=== PATIENT | male | born 1980 | race Asian ===

== ENCOUNTER 2020-03-16 04:39 | Inpatient (IN) | payer OTHER ==
[~2020-03-16] VITALS: Ht 162.6 cm; Wt 67.4 kg
[2020-03-16 06:01] LABS: BASOPHILS % (AUTO) 1 % (0-1); EOSINOPHILS % (AUTO) 1 % (1-7); LYMPHOCYTES % (AUTO) 29 % (22-44); MEAN CORPUSCULAR HEMOGLOBIN 31.1 pg (27.5-34.5); MEAN CORPUSCULAR HGB CONC 33.3 g/dL (33.2-36.2); MEAN PLATELET VOLUME 7.8 fL (7.4-10.4); MONOCYTES % (AUTO) 9 % (2-9); NEUTROPHILS % (AUTO) 60 % (42-75); PLATELET COUNT 364 x10^3/uL (130-400); RED BLOOD COUNT 5.05 x10^6/uL (4.38-5.82); RED CELL DISTRIBUTION WIDTH 13.9 % (9.4-14.8)
[2020-03-16 06:02] LABS: MD NO
[2020-03-16 06:11] LABS: ALANINE AMINOTRANSFERASE 46 U/L (12-78); ALBUMIN 3.5 g/dL (3.4-5.0); ANION GAP 6 mmol/L (5-15); CALCIUM 8.7 mg/dL (8.5-10.1); CHLORIDE 110 mmol/L (98-107); CREATININE 1.24 mg/dL (0.7-1.3)
[2020-03-16 06:16] LABS: ALKALINE PHOSPHATASE 82 U/L (45-117); BILIRUBIN,TOTAL 0.8 mg/dL (0.2-1.0); TOTAL PROTEIN 7.5 g/dL (6.4-8.2); TROPONIN I 0.046 ng/mL (0.000-0.045)
[2020-03-16] MEDS ORDERED: LORazepam 2 MG/ML, 1ML IV ONE (07:00)
[2020-03-16] MEDS ORDERED: ASPIRIN 81 MG TABLET CHEW PO ONE (07:00)
--- NOTE | 2020-03-16 07:18 | NUR ---
PT C/P SOB FOR SEVERAL DAYS. PT STATES HE WAS AT [facility] FOR THE SAME THING AND WAS DISCHARGED. PT STATES THE SOB GETS WORSE WHEN LAYONG FLAT AND AT NIGHT. PT DENIES CP OR GI DISTRESS.
[2020-03-16] MEDS ORDERED: LABETALOL 5MG/ML, 20ML IVPush ONE (07:30)
[2020-03-16] MEDS ORDERED: ENALAPRILAT 1.25 MG/ML, 2ML IV ONE (07:30)
[2020-03-16] MEDS ORDERED: LORazepam 2 MG/ML, 1ML ONE (07:35)
[2020-03-16] MEDS ORDERED: LABETALOL 5MG/ML, 20ML ONE (07:35)
[2020-03-16] MEDS ORDERED: ASPIRIN 81 MG TABLET CHEW ONE (07:35)
--- NOTE | 2020-03-16 08:09 | NUR ---
PHARMACY TUBED FOR VASOTEC
--- NOTE | 2020-03-16 08:26 | NUR ---
PT PLACED ON O2 TO HELP WITH CONTINUED SOB AND PT ANXIETY.
[2020-03-16] MEDS ORDERED: ACETAMINOPHEN 325 MG TABLET PO PRN (09:00)
[2020-03-16] MEDS: ENOXAPARIN 40 MG/0.4 ML SQ SCH (09:00)
--- NOTE | 2020-03-16 09:07 | NUR ---
VASOTEC NOT ADMINISTERED AFTER SPEAKING WITH CAROL GILLESPIE.
[2020-03-16] MEDS ORDERED: ENOXAPARIN 40 MG/0.4 ML ONE (09:14)
[2020-03-16 09:47] LABS: INTERNATIONAL NORMALIZED RATIO 1.14 (0.93-1.1); PROTHROMBIN TIME 12.2 Seconds (9.6-11.5)
--- NOTE | 2020-03-16 09:55 | NUR ---
ULTRASOUND BEDSIDE FOR ABD ULTRASOUND
--- NOTE | 2020-03-16 10:36 | NUR ---
ABD ULTRASOUND COMPLETED
--- NOTE | 2020-03-16 11:10 | NUR ---
REPORT FROM ROLY ZAMORA.
--- NOTE | 2020-03-16 11:36 | NUR ---
REPORT TO JEET ZAMORA.
[2020-03-16 12:56] VITALS: BP 120/85
[2020-03-16 14:16] LABS: ANION GAP 6 mmol/L (5-15); CALCIUM 8.6 mg/dL (8.5-10.1); CHLORIDE 114 mmol/L (98-107); CREATININE 1.13 mg/dL (0.7-1.3)
[2020-03-16 14:20] LABS: TROPONIN I 0.031 ng/mL (0.000-0.045)
[2020-03-16 15:51] LABS: MICROSCOPIC AUTO
[2020-03-16 16:09] LABS: AMPHETAMINE SCREEN, URINE Positive (Negative); BARBITURATE SCREEN, URINE Negative (Negative); BENZODIAZEPINE SCREEN, URINE Negative (Negative); CANNABINOID SCREEN, URINE Negative (Negative); COCAINE SCREEN, URINE Negative (Negative); METHADONE SCREEN, URINE Negative (Negative); OPIATE SCREEN, URINE Negative (Negative)
[2020-03-16 18:23] VITALS: BP 142/96
[2020-03-16] MEDS: CARVEDILOL 3.125 MG TABLET PO SCH (20:27)
[2020-03-16] MEDS ORDERED: FUROSEMIDE 20 MG/2 ML IV ONE (20:30)
[2020-03-16] MEDS ORDERED: TEMAZEPAM 15 MG CAPSULE ONE (23:09)
[2020-03-16] MEDS: TEMAZEPAM 15 MG CAPSULE PO PRN (23:10)
[2020-03-17 01:21] VITALS: BP 142/79
[2020-03-17] MEDS: ASPIRIN 325 MG TABLET EC PO SCH (06:05)
[2020-03-17] MEDS: CARVEDILOL 3.125 MG TABLET PO SCH (06:05)
[2020-03-17 06:11] LABS: BASOPHILS % (AUTO) 1 % (0-1); EOSINOPHILS % (AUTO) 1 % (1-7); LYMPHOCYTES % (AUTO) 29 % (22-44); MEAN CORPUSCULAR HEMOGLOBIN 30.7 pg (27.5-34.5); MEAN PLATELET VOLUME 7.8 fL (7.4-10.4); MONOCYTES % (AUTO) 9 % (2-9); NEUTROPHILS % (AUTO) 60 % (42-75); PLATELET COUNT 355 x10^3/uL (130-400); RED BLOOD COUNT 4.89 x10^6/uL (4.38-5.82); RED CELL DISTRIBUTION WIDTH 13.6 % (9.4-14.8)
[2020-03-17 06:26] LABS: ALBUMIN 3.2 g/dL (3.4-5.0); ANION GAP 5 mmol/L (5-15); CALCIUM 8.4 mg/dL (8.5-10.1); CHLORIDE 109 mmol/L (98-107)
[2020-03-17 06:38] LABS: ALANINE AMINOTRANSFERASE 39 U/L (12-78); ALKALINE PHOSPHATASE 66 U/L (45-117); BILIRUBIN,TOTAL 1.1 mg/dL (0.2-1.0); CREATININE 1.48 mg/dL (0.7-1.3); TOTAL PROTEIN 6.8 g/dL (6.4-8.2)
[2020-03-17 06:39] LABS: MD NO
[2020-03-17 08:09] VITALS: BP 141/100
[2020-03-17] MEDS: ENOXAPARIN 40 MG/0.4 ML SQ SCH (09:00)
[2020-03-17 12:23] VITALS: BP 126/93
[2020-03-17] MEDS: SPIRONOLACTONE 25 MG TABLET PO SCH ×2 (12:49→20:44)
[2020-03-17] MEDS: CARVEDILOL 12.5 MG TABLET PO SCH (17:42)
[2020-03-17 20:29] VITALS: BP 124/87
[2020-03-17] MEDS: TEMAZEPAM 15 MG CAPSULE PO PRN (20:43)
[2020-03-18 00:29] VITALS: BP 130/90
[2020-03-18 05:59] LABS: BASOPHILS % (AUTO) 1 % (0-1); EOSINOPHILS % (AUTO) 1 % (1-7); LYMPHOCYTES % (AUTO) 30 % (22-44); MEAN CORPUSCULAR HEMOGLOBIN 31.2 pg (27.5-34.5); MEAN CORPUSCULAR HGB CONC 33.1 g/dL (33.2-36.2); MEAN PLATELET VOLUME 7.8 fL (7.4-10.4); MONOCYTES % (AUTO) 9 % (2-9); NEUTROPHILS % (AUTO) 59 % (42-75); PLATELET COUNT 353 x10^3/uL (130-400); RED BLOOD COUNT 4.83 x10^6/uL (4.38-5.82); RED CELL DISTRIBUTION WIDTH 13.5 % (9.4-14.8)
[2020-03-18 06:11] LABS: MD NO
[2020-03-18 06:12] LABS: CHLORIDE 108 mmol/L (98-107)
[2020-03-18 06:49] LABS: ANION GAP 8 mmol/L (5-15); CALCIUM 8.8 mg/dL (8.5-10.1); CREATININE 1.29 mg/dL (0.7-1.3)
[2020-03-18] MEDS: CARVEDILOL 12.5 MG TABLET PO SCH ×2 (06:50→17:26)
[2020-03-18] MEDS: ASPIRIN 325 MG TABLET EC PO SCH (06:51)
[2020-03-18 08:04] VITALS: BP 118/81
[2020-03-18] MEDS: ENOXAPARIN 40 MG/0.4 ML SQ SCH (08:31)
[2020-03-18] MEDS: SPIRONOLACTONE 25 MG TABLET PO SCH ×3 (08:31→20:22)
[2020-03-18] MEDS ORDERED: REGADENOSON 0.4 MG/5 ML SYRINGE ONE (08:45)
[2020-03-18 12:57] VITALS: BP 112/78
[2020-03-18 20:00] VITALS: BP 122/87
[2020-03-18] MEDS: TEMAZEPAM 15 MG CAPSULE PO PRN (20:39)
[2020-03-19 01:43] VITALS: BP 111/72
[2020-03-19] MEDS: ASPIRIN 325 MG TABLET EC PO SCH (05:26)
[2020-03-19] MEDS: CARVEDILOL 12.5 MG TABLET PO SCH ×2 (05:26→18:05)
[2020-03-19 06:46] LABS: BASOPHILS % (AUTO) 1 % (0-1); EOSINOPHILS % (AUTO) 1 % (1-7); LYMPHOCYTES % (AUTO) 34 % (22-44); MEAN CORPUSCULAR HGB CONC 33.1 g/dL (33.2-36.2); MEAN PLATELET VOLUME 7.7 fL (7.4-10.4); MONOCYTES % (AUTO) 9 % (2-9); NEUTROPHILS % (AUTO) 56 % (42-75); PLATELET COUNT 357 x10^3/uL (130-400); RED CELL DISTRIBUTION WIDTH 13.8 % (9.4-14.8)
[2020-03-19 06:49] LABS: MD NO
[2020-03-19 06:59] LABS: ANION GAP 7 mmol/L (5-15); CALCIUM 8.3 mg/dL (8.5-10.1); CHLORIDE 108 mmol/L (98-107)
[2020-03-19 08:35] VITALS: BP 136/99
[2020-03-19] MEDS: ENOXAPARIN 40 MG/0.4 ML SQ SCH (09:00)
[2020-03-19] MEDS: SPIRONOLACTONE 25 MG TABLET PO SCH ×2 (09:06→20:30)
[2020-03-19 13:35] VITALS: BP 132/94
[2020-03-19 20:16] VITALS: BP 129/90
[2020-03-19] MEDS: TEMAZEPAM 15 MG CAPSULE PO PRN (20:30)
[2020-03-20 01:43] VITALS: BP 120/79
[2020-03-20 05:46] LABS: BASOPHILS % (AUTO) 0 % (0-1); EOSINOPHILS % (AUTO) 0 % (1-7); LYMPHOCYTES % (AUTO) 24 % (22-44); MD NO; MEAN CORPUSCULAR HEMOGLOBIN 31.1 pg (27.5-34.5); MEAN CORPUSCULAR HGB CONC 33.1 g/dL (33.2-36.2); MEAN PLATELET VOLUME 7.4 fL (7.4-10.4); MONOCYTES % (AUTO) 5 % (2-9); NEUTROPHILS % (AUTO) 71 % (42-75); PLATELET COUNT 365 x10^3/uL (130-400); RED BLOOD COUNT 4.93 x10^6/uL (4.38-5.82); RED CELL DISTRIBUTION WIDTH 13.6 % (9.4-14.8)
[2020-03-20 05:57] LABS: ANION GAP 6 mmol/L (5-15); CALCIUM 8.5 mg/dL (8.5-10.1); CHLORIDE 108 mmol/L (98-107)
[2020-03-20 06:14] VITALS: BP 135/94
[2020-03-20] MEDS: CARVEDILOL 12.5 MG TABLET PO SCH (06:16)
[2020-03-20] MEDS: ASPIRIN 325 MG TABLET EC PO SCH (06:16)
[2020-03-20 07:31] VITALS: BP 135/95
[2020-03-20] MEDS: ENOXAPARIN 40 MG/0.4 ML SQ SCH (09:00)
[2020-03-20] MEDS: SPIRONOLACTONE 25 MG TABLET PO SCH ×2 (09:00→20:17)
[2020-03-20] MEDS ORDERED: MAALOX/HYOSCYAMINE/LIDOCAINE 45 ML BTL PO ONE (12:00)
[2020-03-20 15:08] VITALS: BP 148/79
[2020-03-20 15:30] VITALS: BP 130/93
[2020-03-20] MEDS: PANTOPRAZOLE 20MG TABLET PO SCH (16:37)
[2020-03-20] MEDS: CARVEDILOL 25 MG TABLET PO SCH (16:37)
[2020-03-20] MEDS: TEMAZEPAM 15 MG CAPSULE PO PRN (20:13)
[2020-03-20 21:28] VITALS: BP 126/88
[2020-03-21 01:00] VITALS: BP 120/80
[2020-03-21 04:38] LABS: BASOPHILS % (AUTO) 1 % (0-1); EOSINOPHILS % (AUTO) 0 % (1-7); LYMPHOCYTES % (AUTO) 26 % (22-44); MEAN PLATELET VOLUME 7.7 fL (7.4-10.4); MONOCYTES % (AUTO) 9 % (2-9); NEUTROPHILS % (AUTO) 64 % (42-75); PLATELET COUNT 339 x10^3/uL (130-400); RED BLOOD COUNT 4.96 x10^6/uL (4.38-5.82); RED CELL DISTRIBUTION WIDTH 13.7 % (9.4-14.8)
[2020-03-21 04:41] LABS: MD NO
[2020-03-21 04:49] LABS: ALANINE AMINOTRANSFERASE 57 U/L (12-78); ALBUMIN 3.4 g/dL (3.4-5.0); ANION GAP 7 mmol/L (5-15); CALCIUM 8.4 mg/dL (8.5-10.1); CHLORIDE 111 mmol/L (98-107)
[2020-03-21 04:52] LABS: ALKALINE PHOSPHATASE 60 U/L (45-117); BILIRUBIN,TOTAL 0.8 mg/dL (0.2-1.0); CREATININE 1.34 mg/dL (0.7-1.3); TOTAL PROTEIN 6.7 g/dL (6.4-8.2)
[2020-03-21] MEDS: CARVEDILOL 25 MG TABLET PO SCH (05:41)
[2020-03-21 06:58] VITALS: BP 109/76
[2020-03-21] MEDS: ENOXAPARIN 40 MG/0.4 ML SQ SCH (09:00)
[2020-03-21] MEDS: PANTOPRAZOLE 20MG TABLET PO SCH ×2 (10:32→16:22)
[2020-03-21] MEDS: SPIRONOLACTONE 25 MG TABLET PO SCH (10:33)
[2020-03-21] MEDS: ASPIRIN 325 MG TABLET EC PO SCH (10:33)
[2020-03-21 12:51] VITALS: BP 127/88
[2020-03-21] MEDS ORDERED: ASPI81TA45 PO (14:43)
[2020-03-21] MEDS ORDERED: CARV25TA12 PO (14:43)
[2020-03-21] MEDS ORDERED: PANT20TA4 PO (14:43)
[2020-03-21] MEDS ORDERED: SPIR25TA PO (14:43)
[2020-03-21] MEDS ORDERED: LISI5TAB7 PO (14:43)
== END 2020-03-21 17:34 | disposition home or self-care (01) | DRG 291 ==
LOC: ED 08:57 → EDIP 10:21 → 4WST 12:06
PROVIDERS: ADMIT Hospitalist; ATTEND Hospitalist
DX: I11.0 Hypertensive heart disease with heart failure (principal); J96.01 Acute respiratory failure with hypoxia; G93.41 Metabolic encephalopathy; K85.90 Acute pancreatitis without necrosis or infection, unspecified; N17.0 Acute kidney failure with tubular necrosis; I16.1 Hypertensive emergency; I50.41 Acute combined systolic (congestive) and diastolic (congestive) heart failure; F15.10 Other stimulant abuse, uncomplicated; F17.210 Nicotine dependence, cigarettes, uncomplicated; I27.20 Pulmonary hypertension, unspecified; I07.1 Rheumatic tricuspid insufficiency; E87.5 Hyperkalemia; I95.9 Hypotension, unspecified; F41.9 Anxiety disorder, unspecified; K82.8 Other specified diseases of gallbladder; I42.7 Cardiomyopathy due to drug and external agent; Z79.899 Other long term (current) drug therapy
CPT/HCPCS: 36415; 36600; 71046; 76700; 78227; 78452; 80048; 80053; 80307; 81001; 82607; 82803; 83690; 83735; 83880; 84100; 84443; 84484; 85025; 85610; 93005; 93017; 93306; 93356; 96374; 96375; 99285; G0378; J1650; J2785; A9502; A9537; J1940; J2060; J2805

== ENCOUNTER 2020-03-22 13:46 | Inpatient (IN) | payer OTHER ==
[~2020-03-22] VITALS: Ht 162.6 cm; Wt 61.5 kg
[~2020-03-22 13:46] MED LIST: ASPI81TA45 PO; CARV25TA12 PO; LISI5TAB7 PO; PANT20TA4 PO; SPIR25TA PO
--- NOTE | 2020-03-22 13:58 | NUR ---
research and development scientist: EKG done in triage
--- NOTE | 2020-03-22 14:41 | NUR ---
pt in bed, slightly axnious but redirectable, states he has a cardiac history and a recent admission to this facility for cardiac related shortness of breath. pt calmed and coacched on pursed lip breathing. pt respirations rapid but unlabored. pt reports that he has a distended abd and states that he needs to have his gallbladder out.
[2020-03-22 15:02] LABS: BASOPHILS % (AUTO) 1 % (0-1); EOSINOPHILS % (AUTO) 1 % (1-7); LYMPHOCYTES % (AUTO) 21 % (22-44); MEAN CORPUSCULAR HEMOGLOBIN 31.1 pg (27.5-34.5); MEAN CORPUSCULAR HGB CONC 32.7 g/dL (33.2-36.2); MEAN PLATELET VOLUME 7.4 fL (7.4-10.4); MONOCYTES % (AUTO) 9 % (2-9); NEUTROPHILS % (AUTO) 68 % (42-75); PLATELET COUNT 355 x10^3/uL (130-400); RED BLOOD COUNT 4.72 x10^6/uL (4.38-5.82)
--- NOTE | 2020-03-22 15:11 | NUR ---
pt in bed crying out complaining of feeling short of breath, spo2 noted to be 93% on room air with a good pleth, pt placed on o2 via nasal cannula at 2l/min with spo2 improving to 96%. pt calmed and encouraged to practice pursed lip breathing, head of bed elevated, call light within reach, bed rails up bilaterally, pt continues on monitor technician with 92bpm noted.
[2020-03-22 15:12] LABS: ALANINE AMINOTRANSFERASE 66 U/L (12-78); ALBUMIN 3.3 g/dL (3.4-5.0); ANION GAP 4 mmol/L (5-15); CHLORIDE 110 mmol/L (98-107)
[2020-03-22 15:16] LABS: MD NO
[2020-03-22 15:17] LABS: ALKALINE PHOSPHATASE 72 U/L (45-117); BILIRUBIN,TOTAL 0.3 mg/dL (0.2-1.0); CREATININE 1.36 mg/dL (0.7-1.3); TOTAL PROTEIN 6.6 g/dL (6.4-8.2)
[2020-03-22] MEDS ORDERED: LORazepam 1MG TABLET PO ONE (17:30)
--- NOTE | 2020-03-22 17:44 | NUR ---
pt very aggitated sitting up and screaming in bed, verbalizes wanting to go home. pt states that he doesnt know why hes being held. pt calmed with difficulty, explained current results and pending tests, pt calms and apologizes for his outburst. pt in bed with no signs or symptoms of acute distress noted respiraitons even and unlabored, rn at bedside to assess. pt continues on cardiac technologist, bed rails up bilaterally and call light within reach.
[2020-03-22] MEDS ORDERED: LORazepam 1MG TABLET ONE (17:56)
--- NOTE | 2020-03-22 18:22 | NUR ---
pt out via [facility] for imaging no signs or symptoms of acute distress noted calm and restful in bed.
[2020-03-22] MEDS ORDERED: OMNIPAQUE 350 MG/ML, 75ML BOTTLE ONE (18:35)
--- NOTE | 2020-03-22 18:40 | NUR ---
pt back from imaging complaining of being hungry. pt informed that he will be given a snack once results are back from ct. pt refusing to wear bp cuff, continues to cry out despite coaching and admin of po ativan. pt in bed with desk monitor in place, bed rails up bilaterally and call light within reach
--- NOTE | 2020-03-22 18:49 | NUR ---
BREAK RN: CHART UP FOR RECHECK BY ERP.
[2020-03-22] MEDS ORDERED: FAMOTIDINE 20 MG/2 ML ONE (19:20)
[2020-03-22] MEDS ORDERED: FAMOTIDINE 20 MG/2 ML IVPush ONE (19:30)
--- NOTE | 2020-03-22 19:49 | NUR ---
md in room to assess
--- NOTE | 2020-03-22 19:53 | NUR ---
MOTHER CALLED : LIVIER CLARK [phone]
[2020-03-22] MEDS ORDERED: ONDANSETRON 2MG/ML, 2ML IVPush PRN (20:00)
[2020-03-22] MEDS ORDERED: morphine SULFATE 10 MG/ML, 1ML IVPush PRN (20:00)
[2020-03-22] MEDS ORDERED: BISACODYL 10 MG SUPP PR PRN (20:00)
[2020-03-22] MEDS ORDERED: FUROSEMIDE 20 MG/2 ML ONE (20:13)
[2020-03-22] MEDS ORDERED: HEPARIN 5,000 UNITS/ML, 1ML ONE (20:14)
[2020-03-22] MEDS: FUROSEMIDE 20 MG/2 ML IV SCH (20:17)
[2020-03-22] MEDS: HEPARIN 5,000 UNITS/ML, 1ML SQ SCH (20:20)
[2020-03-22] MEDS: SODIUM CHLORIDE FLUSH 10ML SYR IVF SCH (20:35)
--- NOTE | 2020-03-22 21:22 | NUR ---
pt in bed with no signs or symptoms of acute distress noted laying prone in bed with eyes closed and even unlabored respirations. bed rails up bilaterally call light within reach pt noted to have 800ml out to urinal.
--- NOTE | 2020-03-22 21:54 | NUR ---
pt pacing in room, refusing to wear monitors, no signs or symptoms of acute distress noted respirations even and unlabored. denies needs or discomfort when questioned. lights off in room for comfort
--- NOTE | 2020-03-22 22:31 | NUR ---
pt asking to eat, this rn spoke with hospitalist who agrees to allow pt crackers and water. pt provided hospital bed and a snack and pt verbalizes appreciation for cares and concern. pt sitting in chair in room lights off in room for comfort, no signs or symptoms of acute distress noted respirations even and unlabored. Addendum: 03/22/20 at 2257 by TIERA 900ml of urine out to urinal
[2020-03-22] MEDS: SPIRONOLACTONE 25 MG TABLET PO SCH (23:39)
--- NOTE | 2020-03-23 00:22 | NUR ---
pt resting comfortably in bed with eyes closed and lights off in room for comfort. no signs or symptoms of acute distress noted.call light within reach
--- NOTE | 2020-03-23 01:59 | NUR ---
REPORT FROM NOAH JHA
--- NOTE | 2020-03-23 02:10 | NUR ---
PT RESTING IN HOSPITAL BED. FREQUENT DRY COUGH NOTED. PT DENIES NEEDS. COMPLIANT WITH VS RECHECK. VSS.
--- NOTE | 2020-03-23 03:09 | NUR ---
REPORT TO NOAH MAJANO
--- NOTE | 2020-03-23 03:24 | NUR ---
REPORT FROM VIC ASSUMED CARE OF PT AT THIS TIME
[2020-03-23 05:34] LABS: BASOPHILS % (AUTO) 0 % (0-1); EOSINOPHILS % (AUTO) 1 % (1-7); LYMPHOCYTES % (AUTO) 22 % (22-44); MEAN CORPUSCULAR HEMOGLOBIN 30.9 pg (27.5-34.5); MEAN CORPUSCULAR HGB CONC 32.9 g/dL (33.2-36.2); MEAN PLATELET VOLUME 7.5 fL (7.4-10.4); MONOCYTES % (AUTO) 10 % (2-9); NEUTROPHILS % (AUTO) 68 % (42-75); PLATELET COUNT 355 x10^3/uL (130-400); RED BLOOD COUNT 4.94 x10^6/uL (4.38-5.82); RED CELL DISTRIBUTION WIDTH 13.8 % (9.4-14.8)
[2020-03-23 05:36] LABS: MD NO
--- NOTE | 2020-03-23 05:36 | NUR ---
REPORT TO NAMRATA PT TO FLOOR WITH TECH
[2020-03-23 05:45] LABS: ANION GAP 6 mmol/L (5-15); CALCIUM 8.9 mg/dL (8.5-10.1); CHLORIDE 109 mmol/L (98-107); CHOLESTEROL, TOTAL 148 mg/dL (140-239); CREATININE 1.51 mg/dL (0.7-1.3)
[2020-03-23 05:47] LABS: CHOL/HDL RATIO 4.8; HDL CHOL % 21 % (26-37); HDL CHOLESTEROL (DIRECT) 31 mg/dL (40-60); LDL CHOLESTEROL,CALCULATED 101 mg/dL (54-169); LDL/HDL RATIO 3.3 (0.5-3.0); TRIGLYCERIDES 78 mg/dL (50-200); VLDL CHOLESTEROL 16 mg/dL (0-25)
[2020-03-23 06:09] VITALS: BP 124/82
[2020-03-23] MEDS: ASPIRIN 81 MG TABLET EC PO SCH (06:19)
[2020-03-23] MEDS: CARVEDILOL 25 MG TABLET PO SCH ×2 (06:19→18:33)
[2020-03-23] MEDS: PANTOPRAZOLE 20MG TABLET PO SCH ×2 (06:19→16:22)
[2020-03-23] MEDS: HEPARIN 5,000 UNITS/ML, 1ML SQ SCH ×3 (06:20→22:42)
[2020-03-23] MEDS: LISINOPRIL 5 MG TABLET PO SCH (08:10)
[2020-03-23] MEDS: SPIRONOLACTONE 25 MG TABLET PO SCH ×2 (08:10→20:41)
[2020-03-23] MEDS: FUROSEMIDE 20 MG/2 ML IV SCH (08:15)
[2020-03-23] MEDS: SODIUM CHLORIDE FLUSH 10ML SYR IVF SCH ×2 (08:16→20:41)
[2020-03-23 12:56] VITALS: BP 127/85
[2020-03-23] MEDS: METOCLOPRAMIDE 5 MG/ML, 2ML IVPush SCH ×2 (14:21→20:40)
[2020-03-23 18:59] VITALS: BP 122/73
[2020-03-24 00:44] VITALS: BP 118/78
[2020-03-24] MEDS: METOCLOPRAMIDE 5 MG/ML, 2ML IVPush SCH ×3 (02:35→14:43)
[2020-03-24] MEDS: PANTOPRAZOLE 20MG TABLET PO SCH ×2 (06:05→16:59)
[2020-03-24] MEDS: ASPIRIN 81 MG TABLET EC PO SCH (06:05)
[2020-03-24] MEDS: CARVEDILOL 25 MG TABLET PO SCH ×2 (06:05→18:14)
[2020-03-24] MEDS: HEPARIN 5,000 UNITS/ML, 1ML SQ SCH ×2 (06:07→14:49)
[2020-03-24 06:19] LABS: CHLORIDE 105 mmol/L (98-107)
[2020-03-24 06:23] LABS: ANION GAP 10 mmol/L (5-15); CALCIUM 8.5 mg/dL (8.5-10.1); CREATININE 1.43 mg/dL (0.7-1.3)
[2020-03-24 06:33] VITALS: BP 119/88
[2020-03-24] MEDS ORDERED: TORSEMIDE 20 MG TABLET PO SCH (09:00)
[2020-03-24] MEDS: LISINOPRIL 5 MG TABLET PO SCH (09:02)
[2020-03-24] MEDS: SPIRONOLACTONE 25 MG TABLET PO SCH (09:03)
[2020-03-24] MEDS: SODIUM CHLORIDE FLUSH 10ML SYR IVF SCH (09:03)
[2020-03-24] MEDS ORDERED: OMNIPAQUE 350 MG/ML, 100ML BOTTLE ONE (12:55)
[2020-03-24 13:23] VITALS: BP 115/78
[2020-03-24] MEDS ORDERED: METO10TA82 PO (17:59)
== END 2020-03-24 19:39 | disposition home or self-care (01) | DRG 391 ==
LOC: ED 15:19 → EDIP 19:31 → 4WST 03-23 05:53
PROVIDERS: ADMIT Internal Medicine; ATTEND Internal Medicine
DX: K59.00 Constipation, unspecified (principal); K85.90 Acute pancreatitis without necrosis or infection, unspecified; I42.9 Cardiomyopathy, unspecified; I50.22 Chronic systolic (congestive) heart failure; R18.8 Other ascites; F15.10 Other stimulant abuse, uncomplicated; F17.210 Nicotine dependence, cigarettes, uncomplicated; F41.9 Anxiety disorder, unspecified; I11.0 Hypertensive heart disease with heart failure; I27.20 Pulmonary hypertension, unspecified; K82.8 Other specified diseases of gallbladder
CPT/HCPCS: 36415; 71045; 71275; 74170; 80048; 80053; 80061; 83690; 84484; 85025; 85379; 93005; 96374; 99285; G0378; J1644; Q9967; J1940; J2765